=== PATIENT | female | born 1935 | race Two or more races ===

== ENCOUNTER 2017-06-23 02:05 | Inpatient (IN) | payer OTHER ==
[~2017-06-23] VITALS: Ht 154.9 cm; Wt 64.4 kg
[~2017-06-23 02:05] MED LIST: ASA325 MG PO; BENADRYL PO; PREVACID30 MG PO; SPIRONOLACTONE; VERAPAMIL HCL240 MG PO; [UNRECOGNIZED DRUG - OTHER] PO
[2017-06-29] MEDS ORDERED: AMOXICILLIN875 MG PO (14:14)
== END 2017-06-29 16:08 | disposition home or self-care (01) | DRG 391 ==
LOC: ER 02:05 → MEDJ 19:46
PROC: BW21Y0Z Computerized Tomography (CT Scan) of Abdomen and Pelvis using Other Contrast, Unenhanced and Enhanced (ICD-10-PCS; principal; 2017-06-23)
PROC: BW28ZZZ Computerized Tomography (CT Scan) of Head (ICD-10-PCS; 2017-06-23)
DX: K57.32 Diverticulitis of large intestine without perforation or abscess without bleeding (principal); A41.1 Sepsis due to other specified staphylococcus; I10 Essential (primary) hypertension; R41.82 Altered mental status, unspecified

== ENCOUNTER 2017-07-10 09:03 | Outpatient (CLI) | payer OTHER ==
[~2017-07-10 09:03] MED LIST changes: +AMOXICILLIN875 MG PO
== END 2017-07-10 10:20 | disposition home or self-care (01) ==
LOC: LAB 09:03
DX: I10 Essential (primary) hypertension (principal)

== ENCOUNTER 2017-07-10 09:06 | Outpatient (CLI) | payer OTHER | END 2017-07-10 10:21 | disposition home or self-care (01) | LOC: RAD 09:06 | DX: I10 Essential (primary) hypertension (principal) ==

== ENCOUNTER 2018-06-22 10:16 | Emergency (ER) | payer OTHER ==
[~2018-06-22] VITALS: Ht 157.5 cm; Wt 59.9 kg
[2018-06-22] MEDS ORDERED: CARDURA1 MG PO (10:29)
[2018-06-22] MEDS ORDERED: COZAAR100 MG PO (10:30)
== END 2018-06-22 12:41 | disposition home or self-care (01) ==
LOC: ER 10:16
DX: I95.89 Other hypotension (principal); R42 Dizziness and giddiness

== ENCOUNTER 2018-06-22 13:45 | Outpatient (CLI) | payer OTHER ==
[~2018-06-22 13:45] MED LIST changes: +CARDURA1 MG PO; +COZAAR100 MG PO
== END 2018-06-22 13:50 | disposition home or self-care (01) ==
LOC: RAD 13:45
DX: M25.562 Pain in left knee (principal)

== ENCOUNTER 2018-06-27 11:41 | Emergency (ER) | payer OTHER ==
[~2018-06-27] VITALS: Ht 154.9 cm; Wt 64.4 kg
[2018-06-27] MEDS ORDERED: LOSARTAN POTAS100 MG PO (11:52)
[2018-06-27] MEDS ORDERED: CARDURA1 MG PO (11:52)
== END 2018-06-27 20:36 | disposition home or self-care (01) ==
LOC: ER 11:41
DX: N39.0 Urinary tract infection, site not specified (principal); R10.32 Left lower quadrant pain

== ENCOUNTER 2018-10-28 09:40 | Outpatient (CLI) | payer OTHER ==
[~2018-10-28 09:40] MED LIST changes: +LOSARTAN POTAS100 MG PO
== END 2018-10-28 16:02 | disposition home or self-care (01) ==
LOC: RAD 09:40
DX: M25.552 Pain in left hip (principal)

== ENCOUNTER 2019-11-20 10:16 | Emergency (ER) | payer OTHER ==
[~2019-11-20] VITALS: Ht 152.4 cm; Wt 59.0 kg
[2019-11-20] MEDS ORDERED: VERELAN240 MG (10:32)
== END 2019-11-20 12:38 | disposition home or self-care (01) ==
LOC: ER 10:16
DX: M54.5 Low back pain (principal); M54.2 Cervicalgia

== ENCOUNTER 2020-05-31 12:00 | Outpatient (CLI) | payer OTHER ==
[~2020-05-31 12:00] MED LIST changes: +VERELAN240 MG
[2020-06-01] MEDS ORDERED: BETIMOL5 M1 (05:29)
[2020-06-01] MEDS ORDERED: DICLOFENAC SODI50 MG PO (13:31)
[2020-06-04] MEDS ORDERED: ACCUPRIL5 MG PO (13:53)
== END 2020-05-31 12:05 | disposition home or self-care (01) ==
LOC: LAB 12:00
PROVIDERS: ATTEND Internal Medicine Cardiovascular Disease
DX: I11.9 Hypertensive heart disease without heart failure (principal); E78.2 Mixed hyperlipidemia

== ENCOUNTER 2020-06-01 05:16 | Emergency (ER) | payer OTHER ==
[~2020-06-01] VITALS: Ht 152.4 cm; Wt 61.7 kg
[2020-06-01] MEDS ORDERED: BETIMOL5 M1 (05:29)
[2020-06-01] MEDS ORDERED: DICLOFENAC SODI50 MG PO (13:31)
[2020-06-04] MEDS ORDERED: ACCUPRIL5 MG PO (13:53)
== END 2020-06-01 14:10 | disposition home or self-care (01) ==
LOC: ER 05:16
DX: S52.592A Other fractures of lower end of left radius, initial encounter for closed fracture (principal); S52.615A Nondisplaced fracture of left ulna styloid process, initial encounter for closed fracture; R42 Dizziness and giddiness; R41.0 Disorientation, unspecified; W18.39XA Other fall on same level, initial encounter; Y93.01 Activity, walking, marching and hiking; Y92.018 Other place in single-family (private) house as the place of occurrence of the external cause; Y99.8 Other external cause status; Z03.818 Encounter for observation for suspected exposure to other biological agents ruled out

== ENCOUNTER 2020-06-04 16:00 | Day surgery (SDC) | payer OTHER ==
[~2020-06-04 16:00] MED LIST changes: +ACCUPRIL5 MG PO; +BETIMOL5 M1; +DICLOFENAC SODI50 MG PO
== END 2020-06-04 21:15 | disposition home or self-care (01) ==
LOC: CIR.AMB 16:00
PROVIDERS: ATTEND Orthopaedic Surgery
DX: S52.352A Displaced comminuted fracture of shaft of radius, left arm, initial encounter for closed fracture (principal); M24.532 Contracture, left wrist; Z20.822 Contact with and (suspected) exposure to COVID-19
CPT/HCPCS: 20902 ×2; 25280; C1776

== ENCOUNTER 2020-07-09 13:56 | Outpatient (CLI) | payer OTHER | END 2020-07-09 14:05 | disposition home or self-care (01) | LOC: LAB 13:56 | PROVIDERS: ATTEND Orthopaedic Surgery | DX: E21.2 Other hyperparathyroidism (principal); E56.1 Deficiency of vitamin K; M85.88 Other specified disorders of bone density and structure, other site; E88.89 Other specified metabolic disorders; E55.9 Vitamin D deficiency, unspecified; M81.8 Other osteoporosis without current pathological fracture; S52.532D Colles' fracture of left radius, subsequent encounter for closed fracture with routine healing ==

== ENCOUNTER 2020-07-09 14:55 | Outpatient (CLI) | payer OTHER | END 2020-07-09 15:02 | disposition home or self-care (01) | LOC: TOM 14:55 | PROVIDERS: ATTEND Psychiatry & Neurology Clinical Neurophysiology | DX: F01.50 Vascular dementia, unspecified severity, without behavioral disturbance, psychotic disturbance, mood disturbance, and anxiety (principal); G30.1 Alzheimer's disease with late onset; G93.89 Other specified disorders of brain ==

== ENCOUNTER 2020-08-19 11:16 | Outpatient (CLI) | payer OTHER | END 2020-08-19 11:28 | disposition home or self-care (01) | LOC: NUCLEAR 11:16 | PROVIDERS: ATTEND Orthopaedic Surgery | DX: M81.0 Age-related osteoporosis without current pathological fracture (principal) ==

== ENCOUNTER 2022-11-26 12:14 | Emergency (ER) | payer OTHER ==
[~2022-11-26] VITALS: Ht 154.9 cm; Wt 60.3 kg
== END 2022-11-26 15:50 | disposition home or self-care (01) ==
LOC: ER 12:14
DX: S00.03XA Contusion of scalp, initial encounter (principal); W00.0XXA Fall on same level due to ice and snow, initial encounter; Y93.01 Activity, walking, marching and hiking; Y92.018 Other place in single-family (private) house as the place of occurrence of the external cause; I10 Essential (primary) hypertension; G30.8 Other Alzheimer's disease; F02.80 Dementia in other diseases classified elsewhere, unspecified severity, without behavioral disturbance, psychotic disturbance, mood disturbance, and anxiety

== ENCOUNTER 2024-10-19 14:21 | Emergency (ER) | payer OTHER ==
[~2024-10-19] VITALS: Ht 152.4 cm; Wt 59.0 kg
[2024-10-19] MEDS ORDERED: TOPROL XL25 M1 PO (14:34)
[2024-10-19] MEDS ORDERED: 0.9 % SODIUM CHLORIDE 1,000 ML IV SCH (14:45)
[2024-10-19 15:19] LABS: BASO % 0.4 % (0.1-1.2); EOS # 0.01 (0.04-0.54); EOS % 0.1 % (0.7-7.0); HEMATOCRIT 44.4 % (34.1-44.9); HEMOGLOBIN 14.8 g/dL (11.2-15.7); LYMPH # 1.32 (1.18-3.74); LYMPH % 16.2 % (19.3-53.1); MEAN CORPUSCULAR HEMOGLOBIN 30.8 pg (25.6-32.2); MONO # 0.74 (0.24-0.82); MONO % 9.1 % (4.7-12.5); NEUT # 6.04 (1.56-6.13); NEUT % 74.1 % (34.0-71.1); PLATELET COUNT 230 K/uL (163-369); RED CELL DISTRIBUTION WIDTH 12.3 % (11.6-14.4)
[2024-10-19 16:37] LABS: CALCIUM 9.4 mg/dL (8.5-10.1); CREATININE SERUM 1.11 mg/dL (0.55-1.02); GFR 46.39; POTASSIUM 4.95 mEq/L (3.5-5.1)
== END 2024-10-19 17:47 | disposition home or self-care (01) ==
LOC: ER 14:21
PROVIDERS: Emergency Medicine
DX: R55 Syncope and collapse (principal); I10 Essential (primary) hypertension
CPT/HCPCS: 36415; 70450; 71045; 93005; 96365; 96366; 99284; J7030

== ENCOUNTER 2025-02-23 21:33 | Emergency (ER) | payer OTHER ==
[~2025-02-23] VITALS: Ht 152.4 cm; Wt 68.0 kg
[~2025-02-23 21:33] MED LIST changes: +TOPROL XL25 M1 PO
[2025-02-23] MEDS ORDERED: 0.9 % SODIUM CHLORIDE 1,000 ML IV SCH (23:30)
[2025-02-24 00:07] LABS: BASO % 0.2 % (0.1-1.2); EOS # 0.00 (0.04-0.54); EOS % 0.0 % (0.7-7.0); LYMPH # 1.44 (1.18-3.74); LYMPH % 13.6 % (19.3-53.1); MEAN PLATELET VOLUME 9.70 fl (9.4-12.4); MONO # 0.73 (0.24-0.82); MONO % 6.9 % (4.7-12.5); NEUT # 8.34 (1.56-6.13); NEUT % 79.0 % (34.0-71.1); RED CELL DISTRIBUTION WIDTH 12.6 % (11.6-14.4)
[2025-02-24 00:22] LABS: INR 1.02
[2025-02-24 00:27] LABS: ALT/SGPT 27.0 U/L (12-78); AST/SGOT 14.0 U/L (15-37); BILIRUBIN TOTAL 0.44 mg/dL (0.3-1.2); BUN CREA RATIO 20.0 (7.0-25.0); CREATININE SERUM 1.06 mg/dL (0.55-1.02); GFR 48.81; GLOBULINA 3.9 G/DL (2.4-3.5); GLUCOSE FASTING 141.0 mg/dL (65-100); OSMOLALITY SERUM 281.0 MOSM/KG (275-295)
== END 2025-02-24 03:43 | disposition home or self-care (01) ==
LOC: ER
PROVIDERS: Physician Assistant Medical
DX: S49.82XA Other specified injuries of left shoulder and upper arm, initial encounter (principal); W19.XXXA Unspecified fall, initial encounter; Y93.89 Activity, other specified; Y92.098 Other place in other non-institutional residence as the place of occurrence of the external cause; Y99.8 Other external cause status; T71 Asphyxiation; I10 Essential (primary) hypertension
CPT/HCPCS: 36415; 70450; 71046; 72125; 73020; 73060; 73521; 96365; 96366; 99284; J7030

== ENCOUNTER 2025-03-15 14:20 | Outpatient (CLI) | payer OTHER | END 2025-03-15 14:27 | disposition home or self-care (01) | LOC: RAD 14:20 | PROVIDERS: ATTEND Orthopaedic Surgery | DX: M79.602 Pain in left arm (principal); M25.522 Pain in left elbow ==

== ENCOUNTER 2025-03-22 15:37 | Outpatient (CLI) | payer OTHER | END 2025-03-22 15:39 | disposition home or self-care (01) | LOC: RAD 15:37 | PROVIDERS: ATTEND Orthopaedic Surgery | DX: S42.225A 2-part nondisplaced fracture of surgical neck of left humerus, initial encounter for closed fracture (principal) ==